=== PATIENT | female | born 1990 | race Caucasian/White ===

== ENCOUNTER 2023-03-04 10:04 | Day surgery (SDC) | payer OTHER ==
[~2023-03-04] VITALS: Ht 170.2 cm; Wt 124.7 kg
[~2023-03-04 10:04] MED LIST: DULO1CAP6 PO; GABA-284 PO; NS 1,000 ML IV ONE; OXCA150T21 PO; PROP10TA56 PO; VITA100093 PO
[2023-03-04] MEDS ORDERED: propofoL 200 MG/20 ML VIAL As Ordered ONE ×2 (10:52→11:22)
[2023-03-04] MEDS ORDERED: fentaNYL 100 MCG/2 ML INJECTION As Ordered ONE (10:52)
[2023-03-04 11:38] VITALS: TEMP 97.1
[2023-03-04 11:52] VITALS: BP 140/86; O2SAT 95
== END 2023-03-04 11:56 | disposition home or self-care (01) ==
LOC: M OPP 10:04
PROVIDERS: ATTEND Internal Medicine Gastroenterology
DX: Z01.818 Encounter for other preprocedural examination (principal); K20.90 Esophagitis, unspecified without bleeding; E66.1 Drug-induced obesity; K22.89 Other specified disease of esophagus; K64.8 Other hemorrhoids; K92.1 Melena; Z80.0 Family history of malignant neoplasm of digestive organs; R12 Heartburn; Z87.891 Personal history of nicotine dependence; Z79.891 Long term (current) use of opiate analgesic; Z79.899 Other long term (current) drug therapy; Z88.0 Allergy status to penicillin; Z88.1 Allergy status to other antibiotic agents
CPT/HCPCS: 43239; 45378; 88305; J3010